=== PATIENT | female | born 1985 | race Caucasian/White ===

== ENCOUNTER 2018-06-12 19:01 | Inpatient (IN) | payer BC, OTHER ==
[2018-06-12] MEDS ORDERED: Penicillin G Potassium IV* 5,000,000 UNITS in NS 0.9% 100 ML* 100 ML IVPB ONE (20:46)
[2018-06-12] MEDS ORDERED: Buffered Lidocaine 1% SYRIN* 1 ML/SYRINGE INTRADERM ONE (20:46)
[2018-06-12] MEDS ORDERED: Lactated Ringers 1000 ML Bag* 1,000 ML IV ONE (20:46)
--- NOTE | 2018-06-12 20:59 | HP ---
General Information - Reason for Visit IUP@40+4 here in labor - General Information Maternal Age: 33 Grav: 2 Para: 0 SAB: 0 IEA: 1 Estimated Due Date: 06/08/18 Determined By: LMP Gestational Age in Weeks/Days: 40+4 Maternal Blood Type and Rh: A Positive - Results this Serology/RPR Result: Non-Reactive Rubella Result: Immune HBsAg Result: Negative HIV Result: Negative GBS Culture Result: Positive Past Medical History Pertinent Past Medical History: See Records Past Medical History Comment: Fibrocystic disease of the breast Pertinent Past Surgical History: See Records Past Surgical History Comment: Excision of fibroadenoma (2007, 2011), left breast Pertinent Family History: See Records Family History Comment: Father: stroke, prostate cancer, antiphospholipid syndrome Mother: alcoholism, bipolar disorder Sister: alcoholism, bipolar disorder - Antepartal Records Antepartal Records: Reviewed, Complicated by: - AMA (33), Plt count 134 at 28 weeks Review of Systems Constitutional: Uncomfortable CV Complaint: No Respiratory: Shortness of Breath: No Gastrointestinal: No Nausea/Vomiting, Normal Bowel Movement Genitourinary: Bleeding - Bloody show, No Dysuria, No Leaking Fluid Musculoskeletal: Contractions Neurological: No Headache, No Visual Changes Movement: Normal Exam Temp 99 HR 65 RR 20 BP 112/71 O2 100% - Measurements Height: 5 ft 8 in Weight: 168 lb Weight in lbs: 168.294877 Body Mass Index (BMI): 25.5 Pre- Weight: 297 lb 9.985 oz Weight Gained This : -129.624 lbs and -0.001 ozs - Exam Breast: Breast Exam Deferred CVA: No CVA Tenderness Extremities: No Edema Heart: Normal Rhythm/Heart Sounds HEENT: No Significant Findings Lungs: Clear Bilaterally Rectal: Rectal Exam Deferred Reflexes: DTR 2+ Thyroid: No Thyromegaly - Abdominal Exam Abdomen Exam: Non-Tender, Fundal Height Consistent with Dates - Ultrasound/Biophysical Profile Ultrasound Status: Not Done Targeted Exam Findings See L&D Outpatient Visit Provider Note for Findings: N/A Estimated Weight: 7-8lbs Cervical Exam: 3cm - VE done by RN Effacement: 70% Station: -1 Presenting Part: Vertex Membrane Status: Intact Bleeding/Discharge: Bloody Show EFM Findings - External Monitor Findings Baseline Heart Rate: 130 External Monitor Findings: Accelerations Present, No Pattern of Variable or Late Decelerations, Variability Moderate Contractions: Regular, 45-90 Seconds - Ctx every 2-4 minutes Assessment/Plan - Assessment IUP@40+4 here in labor, GBS+ Platelets at 134@28 weeks Regular contractions No evidence of metabolic acidemia Coping well, at bedside and supportive - Obstetrical Risk Factors Obstetrical Risk Factors: GBS Positive - Plan Plan: Admit - Anticipate Vaginal Delivery Plan Comment: Abx prophylaxis for GBS+ VE PRN Intermittent monitoring Pain meds PRN as requested by patient Anticipate progression to - Date/Time of Admission Date of Admission: 06/12/18 Time of Admission: 08:45
[2018-06-12] MEDS ORDERED: Lactated Ringers 1000 ML Bag* 1,000 ML IV SCH (21:00)
[2018-06-12 21:31] LABS: ABS Basophils 0 10^3/ul (0-0.2); ABS Eosinophils 0 10^3/ul (0-0.6); ABS Lymphocytes 1.1 10^3/ul (1.0-4.8); ABS Monocytes 0.5 10^3/ul (0-0.8); ABS Neutrophils 7.5 10^3/ul (1.5-7.7); ABS Nucleated RBC 0 10^3/ul; Eosinophil % 0 %; Hematocrit 39 % (35-47); Hemoglobin 13.5 g/dl (12.0-16.0); Mean Corpuscular HGB Conc 35 g/dl (31-36); Mean Corpuscular Hemoglobin 31 pg (27-31); Mean Corpuscular Volume 89 fL (80-97); Mean Platelet Volume 11.3 fL (7.4-10.4); Nucleated Red Blood Cells % 0.1; Platelet Count 110 10^3/ul (150-450); Red Blood Count 4.36 10^6/ul (4.00-5.40); Red Cell Distribution Width 14 % (10.5-15); White Blood Count 9.1 10^3/ul (3.5-10.8)
--- NOTE | 2018-06-12 22:17 | PN ---
Progress Note - Progress Note Date of Service: 06/12/18 Note: Coping well with contractions Requesting VE VE: 3.5/75%/-1, vtx; no cervical change FHR 150, ctx q3-5, palpate moderate, good resting tone
--- NOTE | 2018-06-13 00:57 | PN ---
Progress Note - Progress Note Date of Service: 06/13/18 Note: Pt in considerable pain Vomiting x3 - start IV fluids Requesting VE - VE 3.5/80/-1, unchanged from previous exam FHR 130, moderate variability, +accels; No evidence of acidemia Pt requesting pain medication - will give Nubain/phenergan for therapeutic rest Anticipate progression to
[2018-06-13] MEDS: Promethazine INJ(RESTRICTED)* 25 MG/ML 1 ML VIAL IV PRN ×2 (01:22→07:51)
[2018-06-13] MEDS: Nalbuphine* 10 MG/ML 1 ML VIAL IV PRN ×2 (01:22→07:51)
[2018-06-13] MEDS: Penicillin G Potassium IV* 2,500,000 UNITS in NS 0.9% 100 ML* 100 ML IVPB SCH ×4 (03:11→15:30)
--- NOTE | 2018-06-13 07:48 | PN ---
Progress Note - Progress Note Date of Service: 06/13/18 Note: S: Pt was able to rest with nubain/phenergan overnight Regular, painful contractions returned this AM Pt requesting VE and pain medication O: VE: 3.5/80/-1 FHR 135, +accels, moderate variability Contractions every 5+6 mins IBOW A: No evidence of acidemia VE unchanged P: 2nd dose of Nubain/phenergan Risks vs. benefits of Pitocin discussed with family. Plan to start low-dose Pitocin to augment labor. Pt and in agreement with plan. Anticipate progression to
[2018-06-13] MEDS ORDERED: Oxytocin in LR* 20 UNITS/1,000 ML BAG IVPB SCH ×2 (08:00→17:00)
[2018-06-13] MEDS ORDERED: OBEPIDURAL* 250 ML EPIDURAL ONE (12:04)
[2018-06-13] MEDS ORDERED: Bupivacaine 0.5% SDV PF* 30ML VIAL ONE (12:12)
[2018-06-13] MEDS ORDERED: Lactated Ringers 1000 ML Bag* 1,000 ML IV ONE (12:37)
[2018-06-13] MEDS ORDERED: Sodium Citrate/Citric Acid* 15 ML UDC PO PRN (12:37)
[2018-06-13] MEDS ORDERED: Phenylephrine IV* 40 MCG/ML 10 ML SYRINGE IV PUSH PRN (12:37)
[2018-06-13] MEDS ORDERED: Famotidine TAB* 20 MG PO PRN (12:37)
[2018-06-13] MEDS ORDERED: EPHEDrine (Pressors)* 50 MG/ML VIAL IV PUSH PRN (12:37)
--- NOTE | 2018-06-13 12:40 | PN ---
Progress Note - Progress Note Date of Service: 06/13/18 Note: S: Requesting VE and epidural for pain relief O: VE: 5/100/-1 FHR 135, +accels, moderate variability Contractions every q2-4 mins IBOW A: No evidence of acidemia Making cervical change P: Requesting epidural, anesthesia aware Anticipate progression to
[2018-06-13] MEDS ORDERED: Lactated Ringers 1000 ML Bag* 1,000 ML IV SCH ×2 (13:00→17:00)
[2018-06-13] MEDS ORDERED: OBEPIDURAL* 250 ML EPIDURAL SCH (13:00)
[2018-06-13] MEDS ORDERED: Lidocaine 1% INJ* 10 MG/ML 30 ML SDV ONE (15:27)
[2018-06-13] MEDS ORDERED: Tetan/Diph/Pertus SYR(Tdap)* 0.5 ML SYR(BOOSTRIX) use SYR IM ONE (16:44)
[2018-06-13] MEDS ORDERED: Witch Hazel PAD* JAR TOPICAL PRN (16:44)
[2018-06-13] MEDS ORDERED: Acetaminophen TAB* 325 MG PO PRN (16:44)
[2018-06-13] MEDS ORDERED: Glycerin ADULT SUPP PR PRN (16:44)
[2018-06-13] MEDS ORDERED: Dibucaine 1% 28.35 GM TUBE PR PRN (16:44)
--- NOTE | 2018-06-13 17:39 | PROCNOTE ---
[facility] OB: Delivery Note - Delivery A Date of : 06/13/18 Time of : 16:10 [place] Sex: Female Score 1 Minute: 9 Score 5 Minutes: 9 Gestational Age in Weeks and Days at Delivery: 40 Weeks and 5 Days Delivery Method: Spontaneous Vaginal Labor: Spontaneous Amniotic Fluid: Meconium Estimated Blood Loss: 400 Anesthesia/Analgesia: IM/IV, CEI for Labor Delivered By: Raine Alonzo - Nursery Level of Nursery: Regular/Bedside - Perineum Perineal Injury: 2nd Degree Perineal Repair: By Delivering Practioner - Rikki Alonzo CNM - Events Delivery Events of Note: Pitocin During Labor, Full Course of Antibiotics - Additional Delivery Notes Additional Delivery Notes: Pt admitted at 40+4 days in early labor and progressed to active labor with a CEI in place. Labor was augmented by Pitocin. Strong maternal pushing effort led to , liveborn female. OA to CAROLYN, loose nuchal cord easily reduced on perineum, shoulders followed easily. vigorous with spontaneous cry, heartbeat >110 BPM. Delivered to maternal abdomen. Length of labor 10 hours and 10 minutes. Pt pushed for 1 hour 20 minutes. Cord clamped and cut by FOB. Spontaneous delivery of intact placenta, membranes complete. Fundus firm to massage with pitocin infusing. Minimal bleeding noted. Careful inspection of the perineum revealed a second degree laceration, repaired in the usual fashion , anatomy restored, good hemostasis achieved. EBL 400mL. At time of note, mother and infant in stable condition, baby breast feeding.
[2018-06-13] MEDS: Simethicone TAB* 80 MG TAB.CHEW PO SCH ×2 (19:11→21:43)
[2018-06-13] MEDS: Docusate CAP* 100 MG PO SCH (21:41)
[2018-06-14] MEDS: Ibuprofen TAB* 600 MG PO PRN ×3 (05:05→18:35)
[2018-06-14 06:01] LABS: ABS Basophils 0 10^3/ul (0-0.2); ABS Eosinophils 0 10^3/ul (0-0.6); ABS Monocytes 0.7 10^3/ul (0-0.8); ABS Neutrophils 7.5 10^3/ul (1.5-7.7); ABS Nucleated RBC 0 10^3/ul; Eosinophil % 0.4 %; Hematocrit 34 % (35-47); Hemoglobin 11.7 g/dl (12.0-16.0); Lymphocyte % 19.1 %; Mean Corpuscular HGB Conc 35 g/dl (31-36); Mean Corpuscular Hemoglobin 31 pg (27-31); Mean Corpuscular Volume 90 fL (80-97); Mean Platelet Volume 11.2 fL (7.4-10.4); Nucleated Red Blood Cells % 0; Platelet Count 102 10^3/ul (150-450); Red Blood Count 3.78 10^6/ul (4.00-5.40); Red Cell Distribution Width 14 % (10.5-15); White Blood Count 10.3 10^3/ul (3.5-10.8)
[2018-06-14] MEDS ORDERED: Ferrous Gluconate TAB* 324 MG TAB PO SCH (09:00)
[2018-06-14] MEDS: Docusate CAP* 100 MG PO SCH ×3 (09:43→20:44)
[2018-06-15] MEDS: Ibuprofen TAB* 600 MG PO PRN ×2 (00:35→08:47)
[2018-06-15 07:40] VITALS: BP 111/70
[2018-06-15] MEDS: Docusate CAP* 100 MG PO SCH ×2 (08:47→13:23)
--- NOTE | 2018-06-15 15:29 | PTEDU ---
Patient Name: MAICO HENDRICKS MAICO HENDRICKS selected video: BBOB: Bonding Through Infant Massage to view on 06/15/2018 at 3:2 8:24 PM from [id number]
== END 2018-06-15 16:25 | disposition home or self-care (01) | DRG 560 ==
LOC: MCHOBOUT 19:01 → MCHOB 20:51
PROVIDERS: ADMIT Advanced Practice Midwife; ATTEND Advanced Practice Midwife
PROC: 10E0XZZ Delivery of Products of Conception, External Approach (ICD-10-PCS; principal; 2018-06-13)
PROC: 0KQM0ZZ Repair Perineum Muscle, Open Approach (ICD-10-PCS; 2018-06-13)
DX: O48.0 Post-term pregnancy (principal); Z37.0 Single live birth; O77.0 Labor and delivery complicated by meconium in amniotic fluid; O70.1 Second degree perineal laceration during delivery; O99.824 Streptococcus B carrier state complicating childbirth; Z3A.40 40 weeks gestation of pregnancy
CPT/HCPCS: 36415; 85025; 86850; 86900; 86901; A9270-GY; J2300; J2540; J2550

== ENCOUNTER 2022-02-10 06:01 | Inpatient (IN) ==
[2022-02-10] MEDS ORDERED: Buffered Lidocaine 1% SYRIN 1 ml INTRADERM ONE (06:33)
[2022-02-10] MEDS ORDERED: Nalbuphine 10 MG/ML 1 ML VIAL IV PRN (06:33)
[2022-02-10] MEDS ORDERED: Lactated Ringers 1000 ml BAG 1,000 ML IV ONE ×2 (06:33→08:10)
[2022-02-10] MEDS ORDERED: Promethazine INJ(RESTRICTED) 25 MG/ML 1 ml VIAL IV PRN (06:33)
[2022-02-10 06:58] LABS: ABS Lymphocytes 1.8 10^3/ul (1.0-4.8); ABS Monocytes 0.3 10^3/ul (0-0.8); Eosinophil % 0.8 %; Hematocrit 35 % (35-47); Hemoglobin 11.9 g/dL (12.0-16.0); Lymphocyte % 34.3 %; Mean Corpuscular HGB Conc 34 g/dL (31-36); Mean Corpuscular Hemoglobin 28 pg (27-31); Mean Corpuscular Volume 84 fL (80-97); Mean Platelet Volume 10.8 fL (7.4-10.4); Platelet Count 141 10^3/uL (150-450); Red Blood Count 4.24 10^6 /uL (3.70-4.87); Red Cell Distribution Width 14 % (10-15); White Blood Count 5.1 10^3/uL (3.5-10.8)
[2022-02-10] MEDS ORDERED: OBEPIDURAL (200 ML) 200 ML EPIDURAL ONE (07:08)
[2022-02-10] MEDS ORDERED: Phenylephrine 40 mcg/mL 10mL (400mcg) SYRINGE ONE (07:08)
[2022-02-10] MEDS ORDERED: Lidocaine/Epinephrin 1.5%/200 5 ML AMP INJ ONE (07:09)
[2022-02-10] MEDS: Lactated Ringers 1000 ml BAG 1,000 ML IV SCH ×3 (07:18→09:40)
[2022-02-10 07:24] LABS: Urine Benzodiazepine Screen None Detected (None Detect); Urine Cannabinoids Screen None Detected (None Detect); Urine Opiates Screen None Detected (None Detect)
[2022-02-10 07:34] LABS: Albumin 3.5 g/dL (3.2-5.2); Albumin/Globulin Ratio 1.3 (1-3); Calcium 9.1 mg/dL (8.6-10.3); Globulin 2.6 g/dL (2-4); Potassium 4.1 mmol/L (3.5-5.0); Total Bilirubin 0.7 mg/dL (0.2-1.0); Total Protein 6.1 g/dL (6.4-8.9); Uric Acid 4.2 mg/dL (2.3-6.6); eGFR CKD-EPI 117.3 (>60)
[2022-02-10] MEDS ORDERED: Phenylephrine 40 mcg/mL 10mL (400mcg) SYRINGE IV PUSH PRN ×2 (08:10)
[2022-02-10] MEDS ORDERED: Sodium Citrate/Citric Acid LIQ 15 ML UDC PO PRN (08:10)
[2022-02-10] MEDS ORDERED: Lactated Ringers 1000 ml BAG 1,000 ML IV SCH ×2 (09:00→12:00)
[2022-02-10] MEDS ORDERED: OBEPIDURAL (200 ML) 200 ML EPIDURAL SCH (09:00)
[2022-02-10 09:23] LABS: Urine Appearance Clear; Urine Bilirubin Negative (Negative); Urine Blood Negative (Negative); Urine Color Yellow; Urine Glucose Negative (Negative); Urine Ketones Negative (Negative); Urine Nitrite Negative (Negative); Urine Protein Negative (Negative); Urine Urobilinogen Negative (Negative)
[2022-02-10] MEDS ORDERED: Oxytocin in LR 20,000 MILLI.UNIT/1,000 ML BAG IV ONE (10:26)
[2022-02-10] MEDS ORDERED: Lidocaine 1% VIAL 10 MG/ML VIAL ONE (10:36)
[2022-02-10] MEDS ORDERED: Methylergonovine 0.2 mg AMPULE 1 ml AMP ONE (10:36)
[2022-02-10] MEDS ORDERED: Methylergonovine 0.2 mg AMPULE 1 ml AMP IM ONE (11:09)
[2022-02-10] MEDS ORDERED: Witch Hazel PAD JAR TOPICAL PRN (11:09)
[2022-02-10] MEDS ORDERED: Oxytocin in LR 20,000 MILLI.UNIT/1,000 ML BAG IV SCH (11:15)
[2022-02-10] MEDS: Dibucaine 1% OINT 28.35 GM TUBE PR PRN ×2 (12:21→21:12)
[2022-02-11 06:57] LABS: Hematocrit 26 % (35-47); Hemoglobin 8.7 g/dL (12.0-16.0); Mean Corpuscular HGB Conc 33 g/dL (31-36); Mean Corpuscular Hemoglobin 28 pg (27-31); Mean Corpuscular Volume 85 fL (80-97); Red Blood Count 3.09 10^6 /uL (3.70-4.87); Red Cell Distribution Width 14 % (10-15); White Blood Count 5.8 10^3/uL (3.5-10.8)
[2022-02-11 07:14] LABS: ABS Eosinophils 0.1 10^3/ul (0-0.6); ABS Lymphocytes 1.5 10^3/ul (1.0-4.8); ABS Monocytes 0.3 10^3/ul (0-0.8); Eosinophil % 0.9 %; Lymphocyte % 25.2 %; Mean Platelet Volume 9.6 fL (7.4-10.4); Platelet Count 92 10^3/uL (150-450)
[2022-02-11] MEDS ORDERED: Iron Sucrose 200 MG in NS 0.9% 100 ml BAG 100 ML IVPB ONE (12:00)
[2022-02-11] MEDS: Dibucaine 1% OINT 28.35 GM TUBE PR PRN (20:30)
[2022-02-12 08:29] VITALS: BP 131/64
== END 2022-02-12 15:01 | disposition home or self-care (01) | DRG 560 ==
LOC: MCHOBOUT 06:01 → MCHOB 06:23
PROVIDERS: ADMIT Midwife; ATTEND Midwife